=== PATIENT | male | born 1985 | race Caucasian/White ===

== ENCOUNTER 2018-07-13 14:36 | Inpatient (IN) | payer MEDICAID ==
[~2018-07-13] VITALS: Ht 175.3 cm; Wt 184.0 kg
[2018-07-13 15:24] LABS: BASOPHILS # (AUTO) 0.2 X10'3 (0-0.2); BASOPHILS % (AUTO) 1.2 % (0-1); EOSINOPHILS # (AUTO) 0.2 X10'3 (0-0.9); EOSINOPHILS % (AUTO) 1.2 % (0-6); HEMATOCRIT 45.3 % (42.0-52.0); HEMOGLOBIN 14.9 g/dl (14.0-17.9); LYMPHOCYTES # (AUTO) 2.4 X10'3 (1.1-4.8); LYMPHOCYTES % (AUTO) 16.1 % (21-51); MEAN CORPUSCULAR HEMOGLOBIN 29.5 PG (27.0-31.0); MEAN CORPUSCULAR VOLUME 89.2 FL (78-98); MEAN PLATELET VOLUME 10.6 FL (7.4-10.4); MONOCYTES # (AUTO) 1.1 X10'3 (0-0.9); MONOCYTES % (AUTO) 7.8 % (2-12); NEUTROPHILS # (AUTO) 10.7 X10'3 (1.8-7.7); NEUTROPHILS % (AUTO) 73.7 % (42-75); PLATELET COUNT 292 X10'3 (140-440); RED BLOOD COUNT 5.07 X10'6 (4.70-6.10); RED CELL DISTRIBUTION WIDTH 12.7 % (11.5-14.5); WHITE BLOOD COUNT 14.6 X10'3 (4.5-11.0)
[2018-07-13 15:35] LABS: PARTIAL THROMBOPLASTIN TIME 25 SECONDS (22-32)
[2018-07-13 15:39] LABS: ALANINE AMINOTRANSFERASE 12 U/L (12-78); ALBUMIN 3.3 G/DL (3.4-5.0); ALBUMIN/GLOBULIN RATIO 0.7 (1.1-1.5); ALKALINE PHOSPHATASE 131 IU/L (46-116); ANION GAP 10 (8-16); ASPARTATE AMINO TRANSFERASE 6 U/L (10-37); BILIRUBIN,TOTAL 0.3 MG/DL (0.1-1.0); BLOOD UREA NITROGEN 12 MG/DL (7-18); BUN/CREATININE RATIO 12.5 (5.4-32.0); CALCIUM 9.9 MG/DL (8.5-10.1); CHLORIDE 100 MMOL/L (99-107); CREATININE 0.96 MG/DL (0.60-1.10); GLUCOSE 291 MG/DL (70-104); SODIUM 136 MMOL/L (135-145); TOTAL CARBON DIOXIDE 26.4 MMOL/L (24-32); TOTAL PROTEIN 7.8 G/DL (6.4-8.2); eGFR 90 ML/MIN
[2018-07-13 15:41] LABS: CLARITY,URINE CLEAR (Clear); COLOR,URINE YELLOW (Yellow); GLUCOSE, URINE >=1000 mg/dl (Neg); KETONES,URINE NEGATIVE (Neg); LEUKOCYTE ESTERASE ,URINE NEGATIVE (Neg); NITRITES, URINE NEGATIVE (Neg); OCCULT BLOOD,URINE TRACE-INTACT (Neg); PH,URINE 5.5 (4.8-8.0); PROTEIN,URINE TRACE mg/dl (Neg); UROBILINOGEN,URINE 0.2 E.U/dL (0.2-1.0)
[2018-07-13 15:44] LABS: UA COLLECTION TYPE CLN CATCH MIDSTREAM
[2018-07-13 15:47] LABS: AMORPHOUS URATES 1+; BACTERIA,URINE NONE SEEN /HPF (Neg); MUCUS STRANDS NONE SEEN /LPF (Neg); RBC,URINE NONE SEEN /HPF (0-2); SQUAMOUS EPITHELIAL CELL,UR MODERATE /LPF (FEW); WBC,URINE NONE SEEN /HPF (0-4)
[2018-07-13] MEDS ORDERED: DILT120T14 PO (16:06)
[2018-07-13] MEDS ORDERED: OMEP40CA37 PO (16:06)
[2018-07-13] MEDS ORDERED: LISI-643 PO (16:06)
[2018-07-13] MEDS ORDERED: GLIP10TA11 PO (16:06)
[2018-07-13] MEDS ORDERED: ASPI81TA52 PO (16:06)
[2018-07-13] MEDS ORDERED: FURO-150 PO (16:06)
[2018-07-13] MEDS ORDERED: LEVO500T89 PO (16:06)
[2018-07-13] MEDS ORDERED: METF850T PO (16:06)
[2018-07-13] MEDS ORDERED: LORA-269 PO (16:06)
[2018-07-13] MEDS ORDERED: glucagon, human recombinant 1mg kit SUBCUT PRN (16:25)
[2018-07-13] MEDS ORDERED: HYDROcodone/acetaminophen 5mg/325mg tablet PO PRN (16:25)
[2018-07-13] MEDS ORDERED: dextrose ORAL solution 15 GM/59 ML bottle PO PRN ×2 (16:25)
[2018-07-13] MEDS ORDERED: morphine 2 MG/ML inj. syringe IV PRN (16:25)
[2018-07-13] MEDS ORDERED: mag hydrox/Alum hydrox/simeth 30ml oral suspension PO PRN (16:25)
[2018-07-13] MEDS ORDERED: magnesium 4gm in 100ml NS 100 ML IV PRN (16:25)
[2018-07-13] MEDS ORDERED: MESSAGE TO PHARMACY PO ONE (16:25)
[2018-07-13] MEDS ORDERED: potassium Cl 20 mEq SR tablet PO PRN ×2 (16:25)
[2018-07-13] MEDS ORDERED: dextrose 50%-water 50ml dispensing syringe IV PRN ×2 (16:25)
[2018-07-13] MEDS ORDERED: potassium Cl 40MEQ/NS 500ml 500 ML IV PRN ×2 (16:25)
[2018-07-13] MEDS ORDERED: magnesium Cl slow-release 64mg tablet PO PRN (16:25)
[2018-07-13] MEDS ORDERED: magnesium 1gm/100ml D5W IVPB 100 ML IV PRN (16:25)
[2018-07-13] MEDS ORDERED: acetaminophen 325mg tablet PO PRN ×2 (16:25)
[2018-07-13 16:55] LABS: HEMOGLOBIN A1C 10.8 % (4.5-6.2)
[2018-07-13] MEDS ORDERED: iohexol 300mg/ml 100ml inj. ONE (17:07)
[2018-07-13] MEDS: normal saline 1000ml 1,000 ML IV SCH (17:20)
[2018-07-13] MEDS: piperacillin-tazo 2.25gm/50ml 50 ML IV SCH ×2 (17:20→23:24)
[2018-07-13] MEDS: [UNRECOGNIZED DRUG - REMARK] PO SCH (18:00)
[2018-07-13 18:45] VITALS: BP 136/87
[2018-07-13] MEDS ORDERED: ringers solution, lacted 1,000 ML IV ONE (19:27)
[2018-07-13] MEDS: heparin, porcine 5000 units/ml vial SQ SCH (19:45)
[2018-07-13] MEDS: aspirin 81mg tablet.DR PO SCH (19:46)
[2018-07-13 20:33] LABS: BASOPHILS # (AUTO) 0.1 X10'3 (0-0.2); BASOPHILS % (AUTO) 0.8 % (0-1); EOSINOPHILS # (AUTO) 0.3 X10'3 (0-0.9); EOSINOPHILS % (AUTO) 1.9 % (0-6); HEMATOCRIT 40.4 % (42.0-52.0); HEMOGLOBIN 13.7 g/dl (14.0-17.9); LYMPHOCYTES # (AUTO) 2.6 X10'3 (1.1-4.8); LYMPHOCYTES % (AUTO) 19.3 % (21-51); MEAN CORPUSCULAR HEMOGLOBIN 29.6 PG (27.0-31.0); MEAN CORPUSCULAR HGB CONC 33.9 % (33.0-36.5); MEAN CORPUSCULAR VOLUME 87.4 FL (78-98); MEAN PLATELET VOLUME 10.7 FL (7.4-10.4); MONOCYTES # (AUTO) 1.1 X10'3 (0-0.9); MONOCYTES % (AUTO) 8.5 % (2-12); NEUTROPHILS # (AUTO) 9.4 X10'3 (1.8-7.7); NEUTROPHILS % (AUTO) 69.5 % (42-75); PLATELET COUNT 272 X10'3 (140-440); RED BLOOD COUNT 4.62 X10'6 (4.70-6.10); RED CELL DISTRIBUTION WIDTH 13.3 % (11.5-14.5); WHITE BLOOD COUNT 13.5 X10'3 (4.5-11.0)
[2018-07-13 20:49] LABS: ALANINE AMINOTRANSFERASE 14 U/L (12-78); ALBUMIN 2.8 G/DL (3.4-5.0); ALBUMIN/GLOBULIN RATIO 0.7 (1.1-1.5); ALKALINE PHOSPHATASE 109 IU/L (46-116); ANION GAP 9 (8-16); ASPARTATE AMINO TRANSFERASE 7 U/L (10-37); BILIRUBIN,TOTAL 0.4 MG/DL (0.1-1.0); BLOOD UREA NITROGEN 12 MG/DL (7-18); CALCIUM 9.1 MG/DL (8.5-10.1); CHLORIDE 102 MMOL/L (99-107); CREATININE 0.86 MG/DL (0.60-1.10); GLUCOSE 267 MG/DL (70-104); POTASSIUM 3.8 MMOL/L (3.5-5.1); SODIUM 136 MMOL/L (135-145); TOTAL CARBON DIOXIDE 25.5 MMOL/L (24-32); TOTAL PROTEIN 6.6 G/DL (6.4-8.2); eGFR > 90 ML/MIN
[2018-07-13] MEDS: insulin glargine (Lantus) pen - multi-dose SQ SCH (21:00)
[2018-07-13] MEDS ORDERED: temazepam 15mg capsule PO PRN (21:00)
[2018-07-13] MEDS: insulin Lispro (HumaLOG) vial - multi-dose SQ SCH (21:26)
[2018-07-14] VITALS (15 sets, daily range): BP systolic 118–148; BP diastolic 43–85
[2018-07-14 01:38] LABS: LARGE PLATELETS FEW; PLATELET ESTIMATE NORMAL
[2018-07-14 05:11] LABS: BASOPHILS % (AUTO) 0.3 % (0-1); EOSINOPHILS # (AUTO) 0.2 X10'3 (0-0.9); EOSINOPHILS % (AUTO) 1.7 % (0-6); HEMATOCRIT 39.3 % (42.0-52.0); HEMOGLOBIN 13.1 g/dl (14.0-17.9); LYMPHOCYTES # (AUTO) 2.6 X10'3 (1.1-4.8); LYMPHOCYTES % (AUTO) 18.8 % (21-51); MEAN CORPUSCULAR HEMOGLOBIN 29.2 PG (27.0-31.0); MEAN CORPUSCULAR HGB CONC 33.2 % (33.0-36.5); MEAN CORPUSCULAR VOLUME 87.8 FL (78-98); MEAN PLATELET VOLUME 10.5 FL (7.4-10.4); MONOCYTES # (AUTO) 1.2 X10'3 (0-0.9); MONOCYTES % (AUTO) 8.5 % (2-12); NEUTROPHILS # (AUTO) 9.8 X10'3 (1.8-7.7); NEUTROPHILS % (AUTO) 70.7 % (42-75); PLATELET COUNT 281 X10'3 (140-440); RED BLOOD COUNT 4.47 X10'6 (4.70-6.10); RED CELL DISTRIBUTION WIDTH 13.8 % (11.5-14.5); WHITE BLOOD COUNT 13.9 X10'3 (4.5-11.0)
[2018-07-14 05:25] LABS: ALBUMIN 2.7 G/DL (3.4-5.0); ANION GAP 9 (8-16); BLOOD UREA NITROGEN 12 MG/DL (7-18); BUN/CREATININE RATIO 13.3 (5.4-32.0); CALCIUM 8.7 MG/DL (8.5-10.1); CHLORIDE 100 MMOL/L (99-107); GLUCOSE 291 MG/DL (70-104); MAGNESIUM 1.6 MG/DL (1.5-2.4); POTASSIUM 3.8 MMOL/L (3.5-5.1); SODIUM 135 MMOL/L (135-145); TOTAL CARBON DIOXIDE 26.5 MMOL/L (24-32); eGFR > 90 ML/MIN
[2018-07-14] MEDS ORDERED: famotidine 20mg tablet PO ONE (06:00)
[2018-07-14] MEDS: aspirin 81mg tablet.DR PO SCH ×2 (06:52→19:12)
[2018-07-14] MEDS: heparin, porcine 5000 units/ml vial SQ SCH ×2 (06:53→19:12)
[2018-07-14] MEDS: normal saline 1000ml 1,000 ML IV SCH ×3 (07:24→22:24)
[2018-07-14] MEDS: piperacillin-tazo 2.25gm/50ml 50 ML IV SCH ×2 (07:24→16:49)
[2018-07-14] MEDS: diltiazem CD 300mg capsule (once-daily) PO SCH (07:25)
[2018-07-14] MEDS: diltiazem CD 180mg cap (once-daily) PO SCH (07:26)
[2018-07-14] MEDS: lisinopril 10 MG tablet PO SCH (07:26)
[2018-07-14] MEDS: pantoprazole 40mg Tablet.DR PO SCH (07:26)
[2018-07-14] MEDS: insulin Lispro (HumaLOG) vial - multi-dose SQ SCH ×2 (07:35→19:05)
[2018-07-14] MEDS: K and/or MAG REPLACEMENT MC SCH (08:00)
[2018-07-14] MEDS ORDERED: ringers solution, lacted 1,000 ML IV SCH (09:22)
[2018-07-14 09:25] LABS: LARGE PLATELETS FEW; PLATELET ESTIMATE NORMAL
[2018-07-14] MEDS ORDERED: ondansetron/PF 4mg/2ml inj IV PRN (09:25)
[2018-07-14] MEDS ORDERED: proCHLORperazine 10 MG/2 ml inj IV PRN (09:25)
[2018-07-14] MEDS ORDERED: meperidine/PF 25mg/ml syringe IV PRN ×3 (09:25)
[2018-07-14] MEDS ORDERED: morphine 4 MG/ML inj SYRINge IV PRN ×2 (09:25)
[2018-07-14] MEDS ORDERED: insulin Lispro (HumaLOG) vial - multi-dose SQ ONE (09:35)
[2018-07-14] MEDS ORDERED: desflurane 240ml liquid inh. IH ONE (10:55)
[2018-07-14] MEDS ORDERED: midazolam 2 mg/2 ml injection ONE (11:08)
[2018-07-14] MEDS ORDERED: fentaNYL /PF 50mcg/ml 5ml ampule ONE (11:08)
[2018-07-14] MEDS ORDERED: LIDOcaine 2% (20mg/ml) 5ml vial ONE (11:27)
[2018-07-14] MEDS ORDERED: rocuronium 10mg/ml inj IV ONE (11:27)
[2018-07-14] MEDS ORDERED: propofol inj 20 ML IV ONE ×2 (11:27)
[2018-07-14] MEDS ORDERED: sugammadex 200mg/2ml injection IV ONE (12:11)
[2018-07-14] MEDS ORDERED: ondansetron/PF 4mg/2ml inj ONE ×2 (12:20)
[2018-07-14] MEDS ORDERED: HYDROcodone/acetaminophen 10/325mg tab PO PRN (12:25)
[2018-07-14] MEDS ORDERED: HYDROmorphone 1 mg/ml syringe IV PRN (12:25)
[2018-07-14] MEDS ORDERED: insulin regular, human 10 units/0.1 ml syringe IV ONE (12:30)
[2018-07-14] MEDS: ondansetron/PF 4mg/2ml inj IV PRN (12:39)
[2018-07-14] MEDS ORDERED: VANCOMYCIN LEVEL IV ONE (16:30)
[2018-07-14] MEDS: lactobacillus rhamnosus 10,000 MMU CELLS/CAPSULE PO SCH (19:12)
[2018-07-14] MEDS: insulin glargine (Lantus) pen - multi-dose SQ SCH (21:00)
[2018-07-15] MEDS: piperacillin-tazo 2.25gm/50ml 50 ML IV SCH ×3 (00:41→16:54)
[2018-07-15 05:03] LABS: BASOPHILS % (AUTO) 0.3 % (0-1); EOSINOPHILS # (AUTO) 0.3 X10'3 (0-0.9); EOSINOPHILS % (AUTO) 2.3 % (0-6); HEMATOCRIT 35.7 % (42.0-52.0); LYMPHOCYTES # (AUTO) 1.9 X10'3 (1.1-4.8); LYMPHOCYTES % (AUTO) 13.5 % (21-51); MEAN CORPUSCULAR HEMOGLOBIN 29.6 PG (27.0-31.0); MEAN CORPUSCULAR HGB CONC 33.6 % (33.0-36.5); MEAN CORPUSCULAR VOLUME 88.2 FL (78-98); MEAN PLATELET VOLUME 10.1 FL (7.4-10.4); MONOCYTES # (AUTO) 1.3 X10'3 (0-0.9); MONOCYTES % (AUTO) 9.3 % (2-12); NEUTROPHILS # (AUTO) 10.4 X10'3 (1.8-7.7); NEUTROPHILS % (AUTO) 74.6 % (42-75); PLATELET COUNT 249 X10'3 (140-440); RED BLOOD COUNT 4.05 X10'6 (4.70-6.10); RED CELL DISTRIBUTION WIDTH 13.7 % (11.5-14.5); WHITE BLOOD COUNT 13.9 X10'3 (4.5-11.0)
[2018-07-15] MEDS: normal saline 1000ml 1,000 ML IV SCH ×2 (05:18→16:55)
[2018-07-15 05:19] LABS: ALBUMIN 2.4 G/DL (3.4-5.0); ANION GAP 9 (8-16); BLOOD UREA NITROGEN 12 MG/DL (7-18); CALCIUM 8.6 MG/DL (8.5-10.1); CHLORIDE 103 MMOL/L (99-107); GLUCOSE 226 MG/DL (70-104); MAGNESIUM 1.6 MG/DL (1.5-2.4); POTASSIUM 4.1 MMOL/L (3.5-5.1); SODIUM 136 MMOL/L (135-145); TOTAL CARBON DIOXIDE 24.3 MMOL/L (24-32); eGFR 54 ML/MIN
[2018-07-15 07:00] VITALS: BP 133/87
[2018-07-15] MEDS: lisinopril 10 MG tablet PO SCH (07:42)
[2018-07-15] MEDS: pantoprazole 40mg Tablet.DR PO SCH (07:42)
[2018-07-15] MEDS: aspirin 81mg tablet.DR PO SCH ×2 (07:43→21:05)
[2018-07-15] MEDS: diltiazem CD 300mg capsule (once-daily) PO SCH (07:43)
[2018-07-15] MEDS: diltiazem CD 180mg cap (once-daily) PO SCH (07:43)
[2018-07-15] MEDS: lactobacillus rhamnosus 10,000 MMU CELLS/CAPSULE PO SCH ×2 (07:43→21:05)
[2018-07-15] MEDS: K and/or MAG REPLACEMENT MC SCH (07:45)
[2018-07-15] MEDS: heparin, porcine 5000 units/ml vial SQ SCH ×2 (07:50→21:05)
[2018-07-15] MEDS: [UNRECOGNIZED DRUG - REMARK] PO SCH (08:00)
[2018-07-15] MEDS: insulin Lispro (HumaLOG) vial - multi-dose SQ SCH ×3 (09:32→18:57)
[2018-07-15 11:00] VITALS: BP 137/87
[2018-07-15 18:00] VITALS: BP 145/76
[2018-07-15] MEDS: Dakins solution (1/4 strength) 473ml solution TP SCH (21:05)
[2018-07-15] MEDS: insulin glargine (Lantus) pen - multi-dose SQ SCH (21:18)
[2018-07-15 23:30] VITALS: BP 142/83
[2018-07-16] MEDS: piperacillin-tazo 2.25gm/50ml 50 ML IV SCH ×3 (00:21→16:07)
[2018-07-16] MEDS: normal saline 1000ml 1,000 ML IV SCH ×3 (05:25→18:56)
[2018-07-16 05:56] LABS: BASOPHILS % (AUTO) 0.3 % (0-1); EOSINOPHILS # (AUTO) 0.3 X10'3 (0-0.9); EOSINOPHILS % (AUTO) 2.1 % (0-6); HEMATOCRIT 34.5 % (42.0-52.0); HEMOGLOBIN 11.6 g/dl (14.0-17.9); LYMPHOCYTES # (AUTO) 2.2 X10'3 (1.1-4.8); LYMPHOCYTES % (AUTO) 16.4 % (21-51); MEAN CORPUSCULAR HEMOGLOBIN 29.5 PG (27.0-31.0); MEAN CORPUSCULAR HGB CONC 33.7 % (33.0-36.5); MEAN CORPUSCULAR VOLUME 87.7 FL (78-98); MONOCYTES # (AUTO) 1.3 X10'3 (0-0.9); MONOCYTES % (AUTO) 9.2 % (2-12); NEUTROPHILS # (AUTO) 9.8 X10'3 (1.8-7.7); PLATELET COUNT 242 X10'3 (140-440); RED BLOOD COUNT 3.93 X10'6 (4.70-6.10); RED CELL DISTRIBUTION WIDTH 13.5 % (11.5-14.5); WHITE BLOOD COUNT 13.7 X10'3 (4.5-11.0)
[2018-07-16 06:05] LABS: ALBUMIN 2.3 G/DL (3.4-5.0); ANION GAP 9 (8-16); BLOOD UREA NITROGEN 11 MG/DL (7-18); BUN/CREATININE RATIO 5.4 (5.4-32.0); CALCIUM 8.4 MG/DL (8.5-10.1); CHLORIDE 105 MMOL/L (99-107); CREATININE 2.03 MG/DL (0.60-1.10); GLUCOSE 176 MG/DL (70-104); MAGNESIUM 1.8 MG/DL (1.5-2.4); POTASSIUM 4.2 MMOL/L (3.5-5.1); SODIUM 140 MMOL/L (135-145); TOTAL CARBON DIOXIDE 26.4 MMOL/L (24-32); eGFR 38 ML/MIN
[2018-07-16 08:00] VITALS: BP 142/88
[2018-07-16] MEDS: K and/or MAG REPLACEMENT MC SCH (08:00)
[2018-07-16] MEDS: pantoprazole 40mg Tablet.DR PO SCH (08:46)
[2018-07-16] MEDS: diltiazem CD 180mg cap (once-daily) PO SCH (08:46)
[2018-07-16] MEDS: lisinopril 10 MG tablet PO SCH (08:46)
[2018-07-16] MEDS: diltiazem CD 300mg capsule (once-daily) PO SCH (08:46)
[2018-07-16] MEDS: lactobacillus rhamnosus 10,000 MMU CELLS/CAPSULE PO SCH ×2 (08:46→20:31)
[2018-07-16] MEDS: aspirin 81mg tablet.DR PO SCH ×2 (08:46→20:31)
[2018-07-16] MEDS: heparin, porcine 5000 units/ml vial SQ SCH ×2 (08:47→20:32)
[2018-07-16] MEDS: insulin Lispro (HumaLOG) vial - multi-dose SQ SCH ×3 (08:56→18:47)
[2018-07-16 11:30] VITALS: BP 146/88
[2018-07-16] MEDS: Dakins solution (1/4 strength) 473ml solution TP SCH ×2 (11:30→20:32)
[2018-07-16 20:00] VITALS: BP 135/82
[2018-07-16] MEDS: insulin glargine (Lantus) pen - multi-dose SQ SCH (21:08)
[2018-07-16 23:30] VITALS: BP 124/81
[2018-07-17] MEDS: piperacillin-tazo 2.25gm/50ml 50 ML IV SCH ×3 (01:10→17:13)
[2018-07-17 05:02] LABS: BASOPHILS # (AUTO) 0.1 X10'3 (0-0.2); BASOPHILS % (AUTO) 0.4 % (0-1); EOSINOPHILS # (AUTO) 0.3 X10'3 (0-0.9); EOSINOPHILS % (AUTO) 2.8 % (0-6); HEMATOCRIT 34.4 % (42.0-52.0); HEMOGLOBIN 11.5 g/dl (14.0-17.9); LYMPHOCYTES # (AUTO) 1.9 X10'3 (1.1-4.8); LYMPHOCYTES % (AUTO) 15.8 % (21-51); MEAN CORPUSCULAR HEMOGLOBIN 29.6 PG (27.0-31.0); MEAN CORPUSCULAR HGB CONC 33.6 % (33.0-36.5); MEAN CORPUSCULAR VOLUME 88.1 FL (78-98); MEAN PLATELET VOLUME 10.2 FL (7.4-10.4); NEUTROPHILS # (AUTO) 8.9 X10'3 (1.8-7.7); PLATELET COUNT 241 X10'3 (140-440); RED BLOOD COUNT 3.91 X10'6 (4.70-6.10); RED CELL DISTRIBUTION WIDTH 13.5 % (11.5-14.5); WHITE BLOOD COUNT 12.2 X10'3 (4.5-11.0)
[2018-07-17 05:26] LABS: ALBUMIN 2.3 G/DL (3.4-5.0); ANION GAP 11 (8-16); BLOOD UREA NITROGEN 10 MG/DL (7-18); CALCIUM 8.5 MG/DL (8.5-10.1); CHLORIDE 106 MMOL/L (99-107); CREATININE 1.99 MG/DL (0.60-1.10); GLUCOSE 174 MG/DL (70-104); MAGNESIUM 1.8 MG/DL (1.5-2.4); POTASSIUM 3.6 MMOL/L (3.5-5.1); SODIUM 140 MMOL/L (135-145); TOTAL CARBON DIOXIDE 23.5 MMOL/L (24-32); eGFR 39 ML/MIN
[2018-07-17 08:00] VITALS: BP 163/106
[2018-07-17] MEDS: K and/or MAG REPLACEMENT MC SCH (08:00)
[2018-07-17] MEDS: insulin Lispro (HumaLOG) vial - multi-dose SQ SCH ×3 (08:42→19:14)
[2018-07-17] MEDS: diltiazem CD 300mg capsule (once-daily) PO SCH (08:43)
[2018-07-17] MEDS: diltiazem CD 180mg cap (once-daily) PO SCH (08:43)
[2018-07-17] MEDS: lactobacillus rhamnosus 10,000 MMU CELLS/CAPSULE PO SCH ×2 (08:43→20:17)
[2018-07-17] MEDS: lisinopril 10 MG tablet PO SCH (08:43)
[2018-07-17] MEDS: aspirin 81mg tablet.DR PO SCH ×2 (08:43→20:18)
[2018-07-17] MEDS: heparin, porcine 5000 units/ml vial SQ SCH ×2 (08:44→20:19)
[2018-07-17] MEDS: pantoprazole 40mg Tablet.DR PO SCH (08:45)
[2018-07-17] MEDS: normal saline 1000ml 1,000 ML IV SCH ×2 (10:24→20:19)
[2018-07-17] MEDS: ondansetron/PF 4mg/2ml inj IV PRN ×2 (11:30→23:38)
[2018-07-17 12:03] VITALS: BP 143/98
[2018-07-17] MEDS: Dakins solution (1/4 strength) 473ml solution TP SCH ×2 (14:00→21:40)
[2018-07-17 20:00] VITALS: BP 136/86
[2018-07-17] MEDS: insulin glargine (Lantus) pen - multi-dose SQ SCH (21:43)
[2018-07-18] VITALS: BP 136/79
[2018-07-18] MEDS: piperacillin-tazo 2.25gm/50ml 50 ML IV SCH ×2 (00:22→07:56)
[2018-07-18 05:22] LABS: BASOPHILS % (AUTO) 0.3 % (0-1); EOSINOPHILS # (AUTO) 0.4 X10'3 (0-0.9); EOSINOPHILS % (AUTO) 2.6 % (0-6); HEMATOCRIT 33.6 % (42.0-52.0); LYMPHOCYTES # (AUTO) 1.7 X10'3 (1.1-4.8); LYMPHOCYTES % (AUTO) 11.6 % (21-51); MEAN CORPUSCULAR HEMOGLOBIN 29.1 PG (27.0-31.0); MEAN CORPUSCULAR HGB CONC 32.9 % (33.0-36.5); MEAN CORPUSCULAR VOLUME 88.5 FL (78-98); MEAN PLATELET VOLUME 10.6 FL (7.4-10.4); MONOCYTES # (AUTO) 1.2 X10'3 (0-0.9); MONOCYTES % (AUTO) 8.1 % (2-12); NEUTROPHILS # (AUTO) 11.3 X10'3 (1.8-7.7); NEUTROPHILS % (AUTO) 77.4 % (42-75); PLATELET COUNT 259 X10'3 (140-440); RED BLOOD COUNT 3.79 X10'6 (4.70-6.10); RED CELL DISTRIBUTION WIDTH 13.4 % (11.5-14.5); WHITE BLOOD COUNT 14.6 X10'3 (4.5-11.0)
[2018-07-18 05:28] LABS: ALBUMIN 2.2 G/DL (3.4-5.0); ANION GAP 8 (8-16); BLOOD UREA NITROGEN 10 MG/DL (7-18); BUN/CREATININE RATIO 5.3 (5.4-32.0); CALCIUM 8.5 MG/DL (8.5-10.1); CHLORIDE 106 MMOL/L (99-107); CREATININE 1.89 MG/DL (0.60-1.10); GLUCOSE 189 MG/DL (70-104); MAGNESIUM 1.9 MG/DL (1.5-2.4); SODIUM 139 MMOL/L (135-145); eGFR 41 ML/MIN
[2018-07-18] MEDS: normal saline 1000ml 1,000 ML IV SCH ×2 (06:37→17:11)
[2018-07-18] MEDS: ondansetron/PF 4mg/2ml inj IV PRN (06:37)
[2018-07-18 07:38] VITALS: BP 142/94
[2018-07-18] MEDS: heparin, porcine 5000 units/ml vial SQ SCH ×2 (07:57→19:37)
[2018-07-18 07:58] LABS: HIV ANTIBODY 1&2 RAPID NON-REACTIVE (Neg)
[2018-07-18] MEDS: lactobacillus rhamnosus 10,000 MMU CELLS/CAPSULE PO SCH ×2 (07:58→19:36)
[2018-07-18] MEDS: diltiazem CD 180mg cap (once-daily) PO SCH (07:58)
[2018-07-18] MEDS: pantoprazole 40mg Tablet.DR PO SCH (07:58)
[2018-07-18] MEDS: diltiazem CD 300mg capsule (once-daily) PO SCH (07:58)
[2018-07-18] MEDS: lisinopril 10 MG tablet PO SCH (07:59)
[2018-07-18] MEDS: aspirin 81mg tablet.DR PO SCH ×2 (07:59→19:36)
[2018-07-18] MEDS: K and/or MAG REPLACEMENT MC SCH (08:00)
[2018-07-18] MEDS: insulin Lispro (HumaLOG) vial - multi-dose SQ SCH ×3 (08:41→19:33)
[2018-07-18 09:31] VITALS: BP 142/94
[2018-07-18] MEDS: Dakins solution (1/4 strength) 473ml solution TP SCH ×2 (10:42→23:39)
[2018-07-18 11:31] VITALS: BP 142/84
[2018-07-18] MEDS: metroNIDAZOLE 500mg tablet PO SCH ×2 (15:28→23:38)
[2018-07-18] MEDS: magnesium hydroxide 30ml (MOM) UD suspension PO PRN (15:28)
[2018-07-18] MEDS: linezolid 600mg tablet PO SCH (19:37)
[2018-07-18 20:00] VITALS: BP 161/90
[2018-07-18] MEDS: insulin glargine (Lantus) pen - multi-dose SQ SCH (22:22)
[2018-07-19] VITALS: BP 146/86
[2018-07-19] MEDS: normal saline 1000ml 1,000 ML IV SCH ×2 (02:52→11:28)
[2018-07-19 06:48] VITALS: BP 143/91
[2018-07-19] MEDS: K and/or MAG REPLACEMENT MC SCH (08:00)
[2018-07-19] MEDS: diltiazem CD 180mg cap (once-daily) PO SCH (08:04)
[2018-07-19] MEDS: diltiazem CD 300mg capsule (once-daily) PO SCH (08:04)
[2018-07-19] MEDS: pantoprazole 40mg Tablet.DR PO SCH (08:05)
[2018-07-19] MEDS: lactobacillus rhamnosus 10,000 MMU CELLS/CAPSULE PO SCH ×2 (08:05→19:08)
[2018-07-19] MEDS: metroNIDAZOLE 500mg tablet PO SCH ×2 (08:05→15:38)
[2018-07-19] MEDS: lisinopril 10 MG tablet PO SCH (08:05)
[2018-07-19] MEDS: aspirin 81mg tablet.DR PO SCH ×2 (08:05→19:08)
[2018-07-19] MEDS: linezolid 600mg tablet PO SCH ×2 (08:05→19:12)
[2018-07-19] MEDS: heparin, porcine 5000 units/ml vial SQ SCH ×2 (08:06→19:08)
[2018-07-19] MEDS: insulin Lispro (HumaLOG) vial - multi-dose SQ SCH ×3 (08:26→19:04)
[2018-07-19 11:17] VITALS: BP 152/98
[2018-07-19] MEDS: ondansetron/PF 4mg/2ml inj IV PRN ×2 (11:28→19:59)
[2018-07-19] MEDS: LORazepam 1 MG tablet PO SCH (13:23)
[2018-07-19 14:38] VITALS: BP 145/82
[2018-07-19] MEDS: magnesium hydroxide 30ml (MOM) UD suspension PO PRN (15:38)
[2018-07-19] MEDS: Dakins solution (1/4 strength) 473ml solution TP SCH (15:41)
[2018-07-19 18:00] VITALS: BP_SYST 158; BP_SYST 159; BP_DIAS 105; BP_DIAS 108
[2018-07-19] MEDS: docusate sod 100mg capsule PO SCH (19:08)
[2018-07-19] MEDS: insulin glargine (Lantus) pen - multi-dose SQ SCH (22:01)
[2018-07-20] VITALS: BP 133/78
[2018-07-20] MEDS: metroNIDAZOLE 500mg tablet PO SCH ×3 (00:46→17:16)
[2018-07-20] MEDS: Dakins solution (1/4 strength) 473ml solution TP SCH ×2 (00:47→09:31)
[2018-07-20 05:03] LABS: BASOPHILS # (AUTO) 0.1 X10'3 (0-0.2); BASOPHILS % (AUTO) 0.5 % (0-1); EOSINOPHILS # (AUTO) 0.3 X10'3 (0-0.9); HEMATOCRIT 32.9 % (42.0-52.0); HEMOGLOBIN 10.9 g/dl (14.0-17.9); LYMPHOCYTES # (AUTO) 1.7 X10'3 (1.1-4.8); LYMPHOCYTES % (AUTO) 13.2 % (21-51); MEAN CORPUSCULAR HGB CONC 32.9 % (33.0-36.5); MEAN CORPUSCULAR VOLUME 88.1 FL (78-98); MEAN PLATELET VOLUME 10.5 FL (7.4-10.4); MONOCYTES # (AUTO) 1.2 X10'3 (0-0.9); MONOCYTES % (AUTO) 9.1 % (2-12); NEUTROPHILS # (AUTO) 9.8 X10'3 (1.8-7.7); NEUTROPHILS % (AUTO) 75.2 % (42-75); PLATELET COUNT 273 X10'3 (140-440); RED BLOOD COUNT 3.74 X10'6 (4.70-6.10); WHITE BLOOD COUNT 13.1 X10'3 (4.5-11.0)
[2018-07-20 05:56] LABS: ALANINE AMINOTRANSFERASE 9 U/L (12-78); ALBUMIN 2.3 G/DL (3.4-5.0); ALBUMIN/GLOBULIN RATIO 0.6 (1.1-1.5); ALKALINE PHOSPHATASE 85 IU/L (46-116); ANION GAP 10 (8-16); ASPARTATE AMINO TRANSFERASE 7 U/L (10-37); BILIRUBIN,TOTAL 0.3 MG/DL (0.1-1.0); BLOOD UREA NITROGEN 9 MG/DL (7-18); BUN/CREATININE RATIO 4.8 (5.4-32.0); CALCIUM 8.4 MG/DL (8.5-10.1); CHLORIDE 105 MMOL/L (99-107); CREATININE 1.86 MG/DL (0.60-1.10); GLUCOSE 112 MG/DL (70-104); MAGNESIUM 2.1 MG/DL (1.5-2.4); POTASSIUM 3.6 MMOL/L (3.5-5.1); SODIUM 140 MMOL/L (135-145); TOTAL CARBON DIOXIDE 24.6 MMOL/L (24-32); TOTAL PROTEIN 5.9 G/DL (6.4-8.2); eGFR 42 ML/MIN
[2018-07-20 06:59] VITALS: BP 157/99
[2018-07-20] MEDS: pantoprazole 40mg Tablet.DR PO SCH (07:45)
[2018-07-20] MEDS: lisinopril 10 MG tablet PO SCH (07:46)
[2018-07-20] MEDS: diltiazem CD 180mg cap (once-daily) PO SCH (07:46)
[2018-07-20] MEDS: LORazepam 1 MG tablet PO SCH (07:46)
[2018-07-20] MEDS: aspirin 81mg tablet.DR PO SCH (07:46)
[2018-07-20] MEDS: diltiazem CD 300mg capsule (once-daily) PO SCH (07:46)
[2018-07-20] MEDS: docusate sod 100mg capsule PO SCH (07:46)
[2018-07-20] MEDS: lactobacillus rhamnosus 10,000 MMU CELLS/CAPSULE PO SCH (07:46)
[2018-07-20] MEDS: heparin, porcine 5000 units/ml vial SQ SCH (07:48)
[2018-07-20] MEDS: K and/or MAG REPLACEMENT MC SCH (08:00)
[2018-07-20] MEDS: linezolid 600mg tablet PO SCH (09:24)
[2018-07-20] MEDS: insulin Lispro (HumaLOG) vial - multi-dose SQ SCH (09:27)
[2018-07-20 11:00] VITALS: BP 147/97
[2018-07-20] MEDS ORDERED: LINE600T32 PO (14:52)
[2018-07-20] MEDS ORDERED: METR500T4 PO (14:52)
== END 2018-07-20 17:55 | disposition home or self-care (01) | DRG 383 ==
LOC: ER 14:37 → ED HOLD 16:24 → SUR 3N 18:52
PROVIDERS: ADMIT Internal Medicine; ATTEND Internal Medicine
PROC: BQ2 Imaging, Non-Axial Lower Bones, Computerized Tomography (CT Scan) (ICD-10-PCS; 2018-07-13)
PROC: 0JBC0ZZ Excision of Pelvic Region Subcutaneous Tissue and Fascia, Open Approach (ICD-10-PCS; 2018-07-14)
PROC: 5A09357 Assistance with Respiratory Ventilation, Less than 24 Consecutive Hours, Continuous Positive Airway Pressure (ICD-10-PCS; 2018-07-14)
PROC: 0J9C0ZX Drainage of Pelvic Region Subcutaneous Tissue and Fascia, Open Approach, Diagnostic (ICD-10-PCS; principal; 2018-07-14 10:55)
PROC: 5A09357 Assistance with Respiratory Ventilation, Less than 24 Consecutive Hours, Continuous Positive Airway Pressure (ICD-10-PCS; 2018-07-17)
DX: L02.215 Cutaneous abscess of perineum (principal); N17.9 Acute kidney failure, unspecified; E11.65 Type 2 diabetes mellitus with hyperglycemia; E66.01 Morbid (severe) obesity due to excess calories; L03.116 Cellulitis of left lower limb; L02.214 Cutaneous abscess of groin; B95.2 Enterococcus as the cause of diseases classified elsewhere; I48.91 Unspecified atrial fibrillation; G47.33 Obstructive sleep apnea (adult) (pediatric); I10 Essential (primary) hypertension; L02.31 Cutaneous abscess of buttock; Z68.43 Body mass index [BMI] 50.0-59.9, adult; Z91.048 Other nonmedicinal substance allergy status; Z79.899 Other long term (current) drug therapy; Z79.82 Long term (current) use of aspirin
CPT/HCPCS: 36415; 71045; 73700; 73701; 74018; 74150; 80048; 80053; 80202; 81001; 82948; 83036; 83605; 83735; 84145; 85025; 85610; 85730; 86703; 86885; 86900; 86901; 87040; 87070; 87075; 87076; 87077; 87186; 93005; 99285; A4649; A6209; A6253; A6446; A6449; A7000; C9399; J0780; J1644; J1815; J2001; J2250; J2405; J2543; J2704; J3010; J3370; J3490; J7030; J7120; Q9967

== ENCOUNTER 2022-07-07 10:07 | Day surgery (SDC) | payer MEDICAID ==
[~2022-07-07] VITALS: Ht 175.3 cm; Wt 177.3 kg
[~2022-07-07 10:07] MED LIST: ASPI81TA52 PO; DILT120T14 PO; GLIP10TA11 PO; LINE600T14 PO; LISI-643 PO; LORA-269 PO; METF850T PO; METR-159 PO; OMEP40CA21 PO
[2022-07-07 10:15] VITALS: BP 150/84
[2022-07-07] MEDS ORDERED: LIDOcaine Viscous 15ml cup ONE (10:27)
[2022-07-07] MEDS ORDERED: MIDAZolam 1 MG/ML 5ML VIAL ONE (10:27)
[2022-07-07] MEDS ORDERED: fentaNYL/PF 50MCG/1 ML 2ML syringe ONE (10:27)
[2022-07-07] MEDS ORDERED: LISI20TA28 PO (11:01)
[2022-07-07] MEDS ORDERED: DOCU-21 PO (11:02)
[2022-07-07] MEDS ORDERED: MULT-1085 PO (11:02)
[2022-07-07] MEDS ORDERED: CHOL50004 PO (11:03)
[2022-07-07 13:30] VITALS: BP 140/81
[2022-07-07 13:40] VITALS: BP 148/90
[2022-07-07 13:50] VITALS: BP 137/97
[2022-07-07 14:00] VITALS: BP 117/80
== END 2022-07-07 14:10 | disposition home or self-care (01) ==
LOC: GI LAB 10:07
PROVIDERS: ATTEND Internal Medicine Gastroenterology
DX: Z01.818 Encounter for other preprocedural examination (principal); Z98.84 Bariatric surgery status; E66.01 Morbid (severe) obesity due to excess calories; Z68.43 Body mass index [BMI] 50.0-59.9, adult
CPT/HCPCS: 43239; J2250; J3010; J7030; Z7512; 99152; A4620